=== PATIENT | male | born 1990 | race African-American/Black ===

== ENCOUNTER 2017-06-25 17:49 | Emergency (ER) | payer OTHER ==
[~2017-06-25] VITALS: Ht 190.5 cm; Wt 77.1 kg
[~2017-06-25 17:49] MED LIST: FLEXERIL PO; IBUPROFEN 800800 MG PO; NAPROSYN500 MG PO; NORCO 5-325 TA1 EACH PO
[2017-06-25] MEDS ORDERED: NAPROSYN500 MG PO (18:47)
[2017-06-25] MEDS ORDERED: NORFLEX100 MG PO (18:47)
[2017-06-25 19:10] VITALS: BP 120/70
== END 2017-06-25 19:11 | disposition home or self-care (01) ==
LOC: ER 17:49
DX: S16.1XXA Strain of muscle, fascia and tendon at neck level, initial encounter (principal); Z87.891 Personal history of nicotine dependence; V89.2XXA Person injured in unspecified motor-vehicle accident, traffic, initial encounter; Y93.89 Activity, other specified; Y92.89 Other specified places as the place of occurrence of the external cause; Y99.8 Other external cause status